=== PATIENT | male | born 1985 | race American Indian/Alaskan Native ===

== ENCOUNTER 2016-09-12 08:54 | Emergency (ER) | payer SELFPAY ==
[2016-09-12 09:02] VITALS: BP 136/99
--- NOTE | 2016-09-12 09:46 | Emergency Department Report ---
HPI - General Chief Complaint: Skin Rash Time Seen by Provider: 09/12/16 09:36 - HPI HPI: 31-year-old male presents today with bumps on the right side of his face 1 week. Patient states that he got his face shaped one week ago and may have gotten allergic reaction. Patient states that it started as as little bumps that formed disorders and now has surrounding skin swelling. Patient has applied Neosporin, peroxide and tried Benadryl without relief. Describes his pain as 10 out of 10 constant, sharp pain. Positive for history of similar symptoms, treated at home. Denies difficulty in breathing or difficulty in swallowing. Denies fever, chills, nausea, vomiting, chest pain, shortness of breath, abdominal pain. ED Past Medical Hx - Past Medical History Previous Medical History?: No - Surgical History Past Surgical History?: No - Social History Smoking Status: Current Some Day Smoker Substance Use Type: None - Medications Home Medications: Home Medications Medication Instructions Recorded Confirmed Last Taken Type Cephalexin [Keflex] 500 mg PO QID #20 cap 09/12/16 Unknown Rx Clindamycin Phosphate [Clindamycin 1 applicatio TP BID #1 foam 09/12/16 Unknown Rx 1% TOPICAL FOAM] Naproxen [Naprosyn] 500 mg PO BID #30 tablet 09/12/16 Unknown Rx ED Review of Systems ROS: Stated complaint: ALLERGIC REACTION Other details as noted in HPI Constitutional: denies: chills, fever, malaise Eyes: denies: eye pain ENT: denies: ear pain, throat pain, congestion Respiratory: denies: cough, shortness of breath, wheezing Cardiovascular: denies: chest pain, palpitations Endocrine: no symptoms reported Gastrointestinal: denies: abdominal pain, nausea, vomiting Skin: rash Neurological: denies: headache, weakness Physical Exam - Physical Exam Vital Signs: Vital Signs 09/12/16 08:59 Temperature 98.2 F Pulse Rate 85 Respiratory 18 Rate Blood Pressure 136/99 O2 Sat by Pulse 100 Oximetry Physical Exam: GENERAL: The patient is well-developed and well-nourished. Patient is in NAD. HEAD: Normocephalic. Atraumatic. FACE: Positive for sore like lesions surrounding hair follicles, erythematous with minimal clear-green drainage. Positive fore surrounding edema. EYES: PERRL. EARS: External auditory canals and tympanic membranes clear; hearing grossly intact. NOSE: Normal nasal mucosa with no nasal discharge. THROAT: No erythema, swelling or exudates. NECK: Supple, nontender, without lymphadenopathy. CHEST/LUNGS: Clear to auscultation throughout. HEART/CARDIOVASCULAR: Regular rate and rhythm. ABDOMEN: Abdomen is soft, nontender. No guarding or rebound tenderness. EXTREMITIES: Peripheral pulses intact. Capillary refill less than 2 seconds. NEURO: Alert and oriented x 3. Normal gait. ED Course Vital Signs 09/12/16 08:59 Temperature 98.2 F Pulse Rate 85 Respiratory 18 Rate Blood Pressure 136/99 O2 Sat by Pulse 100 Oximetry ED Medical Decision Making - Lab Data Vital Signs 09/12/16 08:59 Temperature 98.2 F Pulse Rate 85 Respiratory 18 Rate Blood Pressure 136/99 O2 Sat by Pulse 100 Oximetry - Medical Decision Making 31-year-old male presents today with folliculitis of his facial hair. Patient is recommended to discard any razors or tremors used on infected facial hair. Patient is in no acute distress at this time. He will be discharged home and is encouraged to follow up with a primary care provider. He will be sent home on topical clindamycin, Keflex and Naprosyn and is encouraged to return to the emergency room for any worsening symptoms. Critical care attestation.: If time is entered above; I have spent that time in minutes in the direct care of this critically ill patient, excluding procedure time. ED Disposition Clinical Impression: Folliculitis Disposition: DISCHARGED TO HOME OR SELFCARE Is pt being admited?: No Does the pt Need Aspirin: No Condition: Stable Instructions: Folliculitis (ED) Additional Instructions: Follow-up with primary care provider. Return to the emergency department if symptoms worsen. Prescriptions: Clindamycin Phosphate [Clindamycin 1% TOPICAL FOAM] 1 applicatio TP BID #1 foam Cephalexin [Keflex] 500 mg PO QID #20 cap Naproxen [Naprosyn] 500 mg PO BID #30 tablet Referrals: PRIMARY CARE [Primary Care Provider] - 3-5 Days [facility] [Outside] - 3-5 Days Forms: Work/School Release Form(ED) Time of Disposition: 09:47
[2016-09-12] MEDS ORDERED: TORADOL IM ONE (09:51)
== END 2016-09-12 10:04 | disposition home or self-care (01) ==
LOC: ED 08:54
DX: L73.9 Follicular disorder, unspecified (principal); F17.200 Nicotine dependence, unspecified, uncomplicated
CPT/HCPCS: 96372; 99282; J1885

== ENCOUNTER 2019-05-24 16:17 | Emergency (ER) | payer SELFPAY ==
[2019-05-24 16:25] VITALS: BP 150/95
--- NOTE | 2019-05-24 17:06 | Event Note ---
ED Screening Note ED Screening Note: This initial assessment/diagnostic orders/clinical plan/treatment(s) is/are subject to change based on patients health status, clinical progression and re- assessment by fellow clinical providers in the ED. Further treatment and workup at subsequent clinical providers discretion. Patient/guardian urged not to elope from the ED as their condition may be serious if not clinically assessed and managed. Initial orders include: 34yo black male states that he severe pain due to a L facial cheek abscess and R hand cut that appears infected.
[2019-05-24] MEDS ORDERED: LIDOCAINE-MPF (1%) 10 MG/1 ML VIAL 5 ML INFILTRATI ONE (17:51)
[2019-05-24] MEDS ORDERED: IBUPROFEN 800 MG TAB PO ONE (17:51)
[2019-05-24] MEDS ORDERED: TETANUS,DIPH,PERTUSS(ACELL) VACCINE 0.5 ML SYRINGE IM ONE (17:51)
--- NOTE | 2019-05-24 17:54 | Emergency Department Report ---
ED Laceration HPI - HPI Chief Complaint: Skin/Abscess/Foreign Body Stated Complaint: ABSCESS Time Seen by Provider: 05/24/19 17:50 Occurred When: Before Yesterday Location: Upper Extremity Severity: moderate Tetanus Status: Not up to Date Laceration Symptoms: Yes Pain, No Foreign Body Sensation, No Numbness, No Weakness Other History: 34 yo comes to ER with several day old lac to hand and dental pain. ABC intact. VSS. taking PO. full ROM of hand. Pt has taken OTC meds for tooth and it still hurts. ED Review of Systems ROS: Stated complaint: ABSCESS Other details as noted in HPI Comment: All other systems reviewed and negative ED Past Medical Hx - Past Medical History Previous Medical History?: No - Surgical History Past Surgical History?: Yes Additional Surgical History: head - Family History Family history: no significant - Social History Smoking Status: Never Smoker Substance Use Type: None - Medications Home Medications: Home Medications Medication Instructions Recorded Confirmed Last Taken Type Clindamycin Phosphate [Clindamycin 1 applicatio TP BID #1 foam 09/12/16 Unknown Rx 1% TOPICAL FOAM] Naproxen [Naprosyn] 500 mg PO BID #30 tablet 09/12/16 Unknown Rx cephALEXin [Keflex] 500 mg PO QID #20 cap 09/12/16 Unknown Rx Amoxicillin [Trimox CAP] 500 mg PO Q8H #30 capsule 05/24/19 Unknown Rx Ibuprofen [Motrin] 800 mg PO Q8HR PRN #30 tablet 05/24/19 Unknown Rx Laceration Physical Exam - Exam General: Vital signs noted. No distress. Alert and acting appropriately. Laceration Location: Upper Extremity Laceration Exam: Yes Normal Distal CMS, No Foreign Body ED Course Vital Signs 05/24/19 05/24/19 16:24 17:04 Temperature 98.1 F 98.0 F Pulse Rate 84 76 Respiratory 12 16 Rate Blood Pressure 150/95 Blood Pressure 150/95 [Right] O2 Sat by Pulse 100 100 Oximetry ED Medical Decision Making - Medical Decision Making L MANDIBULAR DENTAL ABSCESS/CARIES NO LUDWIGS ABC INTACT TAKING PO NO TRISMUS OLD LAC TO R HAND- wound too dated to close; will allow to heal by secondary intention WOUND CARE DRESSING APPLIED neurovasc intact TDAP ROCEPHIN IM MOTRIN FOR PAIN PT AND HIS MOTHER VERBALIZE UNDERSTANDING DC PLAN OF CARE Vital Signs 05/24/19 05/24/19 16:24 17:04 Temperature 98.1 F 98.0 F Pulse Rate 84 76 Respiratory 12 16 Rate Blood Pressure 150/95 Blood Pressure 150/95 [Right] O2 Sat by Pulse 100 100 Oximetry Critical care attestation.: If time is entered above; I have spent that time in minutes in the direct care of this critically ill patient, excluding procedure time. ED Disposition Clinical Impression: Laceration, Dental abscess Disposition: TO HOME OR SELFCARE Is pt being admited?: No Does the pt Need Aspirin: No Condition: Stable Instructions: Laceration (ED), Toothache (ED) Additional Instructions: MED ORDERED TODAY FOLLOW UP WITH DENTIST AARON SEE BELOW FOLLOW UP WITH PCP FOR WOUND CHECK SEE BELOW KEEP WOUND CLEAN AND DRY MOTRIN FOR PAIN AMOX ORDERED Prescriptions: Ibuprofen [Motrin] 800 mg PO Q8HR PRN #30 tablet PRN Reason: Pain, Moderate (4-6) Amoxicillin [Trimox CAP] 500 mg PO Q8H #30 capsule Referrals: PRIMARY CARE, [Primary Care Provider] - 3-5 Days GAGANDEEP SINGH MD [Staff Physician] - 3-5 Days [facility] [Outside] - 3-5 Days [facility] [Outside] - 3-5 Days Time of Disposition: 18:13
[2019-05-24] MEDS ORDERED: SODIUM CHLORIDE 0.9% IRR 500 ML BOTTLE IR ONE (19:48)
== END 2019-05-24 19:05 | disposition home or self-care (01) ==
LOC: ED 16:17
DX: S61.411A Laceration without foreign body of right hand, initial encounter (principal); K04.7 Periapical abscess without sinus; X58.XXXA Exposure to other specified factors, initial encounter; Y93.89 Activity, other specified; Y92.89 Other specified places as the place of occurrence of the external cause; Y99.8 Other external cause status
CPT/HCPCS: 90715; J0696; 90471; 96372